=== PATIENT | female | born 1990 | race Caucasian/White ===

== ENCOUNTER 2017-01-15 05:14 | Emergency (ER) | payer OTHER ==
[~2017-01-15] VITALS: Ht 147.3 cm; Wt 52.2 kg
[~2017-01-15 05:14] MED LIST: CIPR500T94 PO
--- NOTE | 2017-01-15 05:57 | PHYS DOC ---
Past History Past Medical History: UTI Additional Past Medical Histor: Spinal bifida Past Surgical History: No Surgical History Additional Past Surgical Histo: PROPERTY CARETAKER shunt; spinal tethering; Spinal fusion Smoking: Non-smoker Alcohol Use: None Drug Use: None Adult General Chief Complaint Chief Complaint: Chest pain HPI HPI Patient is a 26 year old female who presents with signs of chest pain. She describes it as a dull ache. This started at 2100 p.m. hours. It is worse with laying down. The pain goes into her middle of her back. It is 4 on a pain scale presently. Initially started the epigastric area and has spread upwards into her chest. She states "recently which she felt was due to allergies and has been taking allergy medications. No recent travel. Denies any shortness of air with the pain. He is on control pills however does not smoke tobacco. Denies vomiting or diarrhea. No urinary complaints, she does self catheter. No fever or chills. Review of Systems Review of Systems Constitutional: Denies fever or chills Eyes: Denies change in visual acuity, redness, or eye pain HENT: Denies nasal congestion or sore throat Respiratory: Denies cough or shortness of breath Cardiovascular: Chest pain as noted, no syncope GI: epigastric abdominal pain, NO nausea, vomiting, bloody stools or diarrhea : Denies dysuria or hematuria -SELF CATHS Musculoskeletal:prior back surgery no joint pain or swelling Integument: Denies rash or skin lesions Neurologic: Denies headache, focal weakness or sensory changes Current Medications Current Medications Current Medications Medications (Trade) Dose Ordered Sig/Cande Start Time Stop Time Status Last Admin Dose Admin Sodium Chloride 1,000 ml @ 100 mls/hr Q10H 01/15/17 06:00 01/15/17 15:59 Allergies Allergies Allergies Coded Allergies Type Severity Reaction Last Updated Verified Sulfa (Sulfonamide Antibiotics) Allergy Severe Hives 08/21/15 Yes latex Allergy Severe Rash 08/21/15 Yes Physical Exam Physical Exam Constitutional: Well developed, well nourished, no acute distress, non-toxic appearance. HENT: Normocephalic, atraumatic, bilateral external ears normal, oropharynx moist, no oral exudates, nose normal. Eyes: PERRLA, EOMI, conjunctiva normal, no discharge. Neck: Normal range of motion, no tenderness, supple, no stridor. Cardiovascular:Heart rate regular rhythm, no murmur Lungs & Thorax: Bilateral breath sounds clear to auscultation. significant kyphosis noted Abdomen: Bowel sounds normal, soft, no tenderness to abdomen on palpation, no masses, no pulsatile masses. Skin: Warm, dry, no erythema, no rash. Back: No tenderness, no CVA tenderness. Extremities: No tenderness, no cyanosis, no clubbing, ROM intact, no edema. Neurologic: Alert and oriented X 3, normal motor function, normal sensory function, no focal deficits noted. Psychologic: Affect normal, judgement normal, mood normal. Current Patient Data Vital Signs BP 128/76, P 20, sat 99% RA, P 57 EKG EKG EKG interpreted by myself. Heart rate is 71 sinus rhythm. Normal axis. No acute ST elevation. No acute ST changes. Time at 0539 AM. Radiology/Procedures Radiology/Procedures CXR: Interpreted by myself. Scoliosis with rods in place; no acute infiltrate; no pleural effusion. PATIENT: JOSE L ANN ACCOUNT: [id number] : 1990 LOCATION: ER AGE: 26 SEX: F EXAM STATUS: REG ER ORD. PHYSICIAN: YOMI MI MD REASON: Chest pain PROCEDURE: PORTABLE CHEST 1V Portable chest, 01/15/2017: History: Chest pain Comparison is made to a study from 02/19/2013. A tubing overlying the left side of the chest presumably represents a PROPERTY CARETAKER shunt tube. There are Traore rods and surgical wires in the thoracolumbar spine traversing a moderate scoliosis. The heart size and pulmonary vascularity are normal. No pulmonary infiltrates are seen. There is no evidence of pleural fluid. IMPRESSION: No acute cardiopulmonary abnormality is detected. DICTATED AND SIGNED BY: NANDA CANAS MD DATE: 01/15/17702 CC: YOMI MI MD; MADHU VALDIVIA DO; INA HESS DO ~ PATIENT: JOSE L ANN ACCOUNT: [id number] : 1990 LOCATION: ER AGE: 26 SEX: F EXAM STATUS: REG ER ORD. PHYSICIAN: INA HESS DO REASON: cp, elev d-dimer PROCEDURE: CT ANGIOGRAPHY CHEST Examination: CT angiogram of the chest History: History of elevated d-dimer, chest pain Comparison: None available Technique: Axial CT and radiographic images were performed with IV contrast with coronal and sagittal 3-D MIP reformats are performed PQRS Compliance Statement: One or more of the following individualized dose reduction techniques were utilized for this examination: 1. Automated exposure control 2. Adjustment of the mA and/or kV according to patient size 3. Use of iterative reconstruction technique Findings: The caliber of the aorta grossly appears unremarkable. There is no evidence of filling defect identified in the main pulmonary arterial trunk and right and left main pulmonary arteries. There is no evidence of visualized filling defect identified in the lobar, proximal segmental branch of the pulmonary arteries. The evaluation of the distal segmental branches and subsegmental branches of the pulmonary arteries is limited. Examination is very limited due to significant streak artifact from thoracolumbar hardware. There is small focus of airspace opacity identified abutting the pleura in the right lung base measuring 1.3 cm. No evidence of pleural effusion or pneumothorax identified. The visualized liver grossly appears unremarkable. The gallbladder is moderately distended with multiple gallstones filling the gallbladder. The visualized spleen grossly appears unremarkable. There appears to be diffuse cystic changes identified in the region of the bilateral kidneys however evaluation of the kidneys is significantly limited due to diffuse streak artifact from the thoracolumbar hardware. These cystic structures in the bilateral kidneys may represent a cysts or partially visualized dilated bilateral renal pelvis. Diffuse bony fusion of mid thoracic vertebral bodies are identified with the Traore rods in the thoracic lumbar region. Thoracic scoliosis identified. Impression: 1. No evidence of filling defects identified in the visualized pulmonary arteries to suggest central pulmonary embolism. The evaluation of the distal segmental branches of the pulmonary arteries is limited. 2. 1.3 cm soft tissue density identified abutting the pleura in the right lung base laterally could be pleural thickening or scarring or infiltrate. Follow-up examination is recommended to document stability. 3.There appears to be diffuse cystic changes identified in the region of the bilateral kidneys however evaluation of the kidneys is significantly limited due to diffuse streak artifact from the thoracolumbar hardware. These cystic structures in the bilateral kidneys may represent a cysts or partially visualized dilated bilateral renal pelvis. Follow-up ultrasound can be considered. 4. Moderately distended gallbladder filled with gallstones. DICTATED AND SIGNED BY: DAVID GALLOWAY MD DATE: 01/15/17 0832 CC: MADHU VALDIVIA DO; INA HESS DO ~ PATIENT: JOSE L ANN ACCOUNT: [id number] : 1990 LOCATION: ER AGE: 26 SEX: F EXAM STATUS: REG ER ORD. PHYSICIAN: INA HESS DO REASON: GB and renal eval, see CT PROCEDURE: ABDOMEN COMPLETE Abdominal ultrasound, 01/15/2017: History: Abdominal pain The gallbladder contains multiple gallstones. Its warren are mildly thickened measuring approximately 6 mm. The common hepatic duct is of normal caliber. No intrahepatic biliary ductal dilatation is seen. There is no evidence of a hepatic mass. The visualized portions of the pancreatic body are unremarkable. The spleen is of normal size. The visualized portions of the abdominal aorta and inferior vena cava show no abnormality. There is mild to moderate bilateral hydronephrosis. This improved slightly following bladder emptying. There was 110 cc of post voiding residual urine in the bladder. IMPRESSION: 1. Cholelithiasis with mild associated gallbladder wall thickening. 2. Mild to moderate bilateral hydronephrosis. 3. Moderate volume of post voiding residual urine in the bladder. DICTATED AND SIGNED BY: NANDA CANAS MD DATE: 01/15/17 1148 CC: MADHU VALDIVIA DO; INA HESS DO ~ Course & Med Decision Making Course & Med Decision Making Pertinent Labs and Imaging studies reviewed. (See chart for details) Differential diagnosis: pulmonary emboli; gastritis; GERD; chest pain of unclear etiology. 0600 am: Care of patient turned over at shift change to Dr Hess. Lab pending and see his note for remainder of evaluation and disposition 0717: Time in department just over two hours. Staff reports numerous failed attempts at collecting labs, some reported hemolyzed and had to be redrawn. Lab has come to draw pt, will have prolonged ED course due to lab delay. 0726: d-dimer 0.77, will check CTA. WBC 15, b5, Cr 1.2, AST 38, UA +SE contamination. Pt will have prolonged course in ED due to Rad. I discussed findings, pt feeling much better. Discussed potential hospital admission, pt requests d/c home to f/u as outpt. See departure. Ke Disclaimer Ke Disclaimer This chart was dictated in whole or in part using Voice Recognition software in a busy, high-work load, and often noisy Emergency Department environment. It may contain unintended and wholly unrecognized errors or omissions. Departure Time of Disposition: 12:14 Disposition: 01 HOME, SELF-CARE Diagnosis: UTI, cholelithiasis, Condition: GOOD Patient Instructions: Cholelithiasis, [id number], Urinary Tract Infection, [id number] Referrals: MADHU VALDIVIA DO (PCP) Additional Instructions: [place] diet, avoid fried/fatty foods. Aggressive hydration with gatorade, water. Rx: norco 5mg #20, zofran odt, cipro You will need to follow up with a general surgeon. You may wish to see: [facility] General Surgery [address] [facility] [address] , [place] [address] call to schedule appointment. Return to ED with new or changing symptoms. Departure Departure: Disposition: HOME, SELF-CARE Condition: GOOD Referrals: AMDHU VALDIVIA DO (PCP) Patient Instructions: Cholelithiasis, [id number], Urinary Tract Infection, [id number] Additional Instructions: [place] diet, avoid fried/fatty foods. Aggressive hydration with gatorade, water. Rx: norco 5mg #20, zofran odt, cipro You will need to follow up with a general surgeon. You may wish to see: [facility] General Surgery [address] [facility] [address] , [place] [address] call to schedule appointment. Return to ED with new or changing symptoms. Scripts Ciprofloxacin Hcl (CIPRO) 500 Mg Tablet 1 TAB PO BID, #20 TAB Prov: INA HESS DO 01/15/17 Ondansetron (ZOFRAN ODT) 4 Mg Tab.rapdis 4 MG PO Q6HRS for NAUSEA/VOMITING, #20 TAB Prov: INA HESS DO 16/17 Hydrocodone Bit/Acetaminophen (NORCO 5-325 TABLET) 1 Each Tablet 1 TAB PO PRN Q6HRS Y for PAIN, #14 TAB 0 Refills Prov: INA HESS DO 01/15/17 YOMI MI MD January 15, 2017 05:57 INA HESS DO January 15, 2017 07:18
[2017-01-15] MEDS: IV NORMAL SALINE 1,000ML 1,000 ML IV SCH ×2 (06:00→07:45)
[2017-01-15 06:18] LABS: BILIRUBIN,URINE NEG (NEG); CLARITY,URINE CLOUDY; COLOR,URINE STRAW; GLUCOSE,URINE NEG (NEG); NITRITE,URINE NEG (NEG); UROBILINOGEN,URINE 0.2 mg/dL (0.2 mg/dL)
[2017-01-15 06:19] LABS: BACTERIA,URINE MANY /HPF (0-FEW); SQUAMOUS EPITHELIAL CELL,UR OCC /LPF; WBC,URINE >40 /HPF (0-4)
[2017-01-15 06:20] LABS: BASO # 0.1 x10^3/uL (0.0-0.2); BASO % 1 % (0-3); EOS # 0.2 x10^3/uL (0.0-0.7); EOS % 1 % (0-3); HEMATOCRIT 38.7 % (36.0-47.0); HEMOGLOBIN 12.9 g/dL (12.0-15.5); LYMPH # 1.7 x10^3/uL (1.0-4.8); LYMPH % 12 % (24-48); MEAN CORPUSCULAR HEMOGLOBIN 29 pg (25-35); MEAN CORPUSCULAR HGB CONC 33 g/dL (31-37); MEAN CORPUSCULAR VOLUME 86 fL (79-100); MONO # 0.9 x10^3/uL (0.0-1.1); MONO % 6 % (0-9); NEUT % 80 % (31-73); PLATELET COUNT 346 x10^3/uL (140-400); RED CELL DISTRIBUTION WIDTH 13.6 % (11.5-14.5)
--- NOTE | 2017-01-15 06:31 | EKG ---
[address] [address] Test Date: 2017-01-15 Test Time: 05:39:16 Pat Name: JOSE L ANN Department: Room: Gender: F [employer]cavating [employer]or: : 1990 Requested By: YOMI MI Order Number: [id number] Reading MD: Genaro Howell Measurements Intervals [place] Rate: 71 P: 42 KS: 148 QRS: 10 QRSD: 80 T: 41 QT: 376 QTc: 409 Interpretive Statements SINUS RHYTHM Electronically Signed On 01-15-2017 10:55:27 CDT by Genaro Howell
--- NOTE | 2017-01-15 07:07 | RAD ---
Portable chest, 01/15/2017: History: Chest pain Comparison is made to a study from 02/19/2013. 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 There are Traore rods and surgical wires in the thoracolumbar spine traversing a moderate scoliosis. The heart size and pulmonary vascularity are normal. No pulmonary infiltrates are seen. There is no evidence of pleural fluid. IMPRESSION: No acute cardiopulmonary abnormality is detected.
[2017-01-15 07:19] LABS: PREG TEST PT QUAL NEGATIVE (NEG)
[2017-01-15 07:31] LABS: ALBUMIN 3.4 g/dL (3.4-5.0); ALBUMIN/GLOBULIN RATIO 0.8 (1.0-1.7); CALCIUM 8.9 mg/dL (8.5-10.1); CREATININE 1.2 mg/dL (0.6-1.0); DIRECT BILIRUBIN 0.2 mg/dL (0.0-0.2); GFR 53.5; POTASSIUM 3.9 mmol/L (3.5-5.1); TOTAL BILIRUBIN 0.4 mg/dL (0.2-1.0); TOTAL PROTEIN 7.5 g/dL (6.4-8.2)
[2017-01-15] MEDS ORDERED: IOHEXOL 300 MG/ML 75 ML VIAL. ONE (08:03)
[2017-01-15] MEDS ORDERED: IOHEXOL 300 MG/ML 75 ML VIAL. IV ONE (08:15)
[2017-01-15 08:40] LABS: % BANDS 5 % (0-9); % BASOS 2 % (0-3); % EOS 0 % (0-5); % LYMPHS 16 % (24-48); % MONOS 5 % (0-10); % SEGS 72 % (35-66); PLATELET CLUMP PRESENT; PLT ESTIMATE ADEQUATE (ADEQUATE)
--- NOTE | 2017-01-15 08:47 | RAD ---
Examination: CT angiogram of the chest History: History of elevated d-dimer, chest pain Comparison: None available Technique: Axial CT and radiographic images were performed with IV contrast with coronal and sagittal 3-D MIP reformats are performed PQRS Compliance Statement: One or more of the following individualized dose reduction techniques were utilized for this examination: 1. Automated exposure control 2. Adjustment of the mA and/or kV according to patient size 3. Use of iterative reconstruction technique Findings: The caliber of the aorta grossly appears unremarkable. There is no evidence of filling defect identified in the main pulmonary arterial trunk and right and left main pulmonary arteries. There is no evidence of visualized filling defect identified in the lobar, proximal segmental branch of the pulmonary arteries. The evaluation of the distal segmental branches and subsegmental branches of the pulmonary arteries is limited. Examination is very limited due to significant streak artifact from thoracolumbar hardware. There is small focus of airspace opacity identified abutting the pleura in the right lung base measuring 1.3 cm. No evidence of pleural effusion or pneumothorax identified. The visualized liver grossly appears unremarkable. The gallbladder is moderately distended with multiple gallstones filling the gallbladder. The visualized spleen grossly appears unremarkable. There appears to be diffuse cystic changes identified in the region of the bilateral kidneys however evaluation of the kidneys is significantly limited due to diffuse streak artifact from the thoracolumbar hardware. These cystic structures in the bilateral kidneys may represent a cysts or partially visualized dilated bilateral renal pelvis. Diffuse bony fusion of mid thoracic vertebral bodies are identified with the Traore rods in the thoracic lumbar region. Thoracic scoliosis identified. Impression: 1. No evidence of filling defects identified in the visualized pulmonary arteries to suggest central pulmonary embolism. The evaluation of the distal segmental branches of the pulmonary arteries is limited. 2. 1.3 cm soft tissue density identified abutting the pleura in the right lung base laterally could be pleural thickening or scarring or infiltrate. Follow-up examination is recommended to document stability. 3.There appears to be diffuse cystic changes identified in the region of the bilateral kidneys however evaluation of the kidneys is significantly limited due to diffuse streak artifact from the thoracolumbar hardware. These cystic structures in the bilateral kidneys may represent a cysts or partially visualized dilated bilateral renal pelvis. Follow-up ultrasound can be considered. 4. Moderately distended gallbladder filled with gallstones.
--- NOTE | 2017-01-15 10:25 | ACF ---
Admission Criteria Forms URINARY COMPLICATIONS Clinical Indications for Inpatient Care (Place 'X' for any and all applicable criteria): Ongoing inpatient care may be indicated for urinary complications with ANY ONE of the following: [ ]I. Urinary tract infection requiring inpatient care as indicated by ANY ONE of the following(8)(19)(20): [ ]a) Severe symptoms (eg, high fever, severe pain) [ ]b) Vomiting or dehydration requiring ongoing inpatient care [ ]c) IV antibiotic needs that cannot be managed at lower level of care [ ]d) Hemodynamic instability [ ]e) Obstruction of collecting system by stone or tumor [ ]II. Urinary retention requiring drainage or surgery (3)(4)(5)(17)(18) [ ]III. Renal failure (Use Renal Failure Criteria for further information.) [ ]IV. Oliguria(30) [ ]V. Post obstructive diuresis requiring close monitoring of urine output and intravenous compensation for excessive fluid losses(33) Extended stay beyond goal length of stay for primary condition may be needed until ALL of the following are present(3)(4)(5)(8): [ ]a) Renal function (creatinine) at baseline, or daily decreases in creatinine consistent with renal function return [ ]b) Voiding adequately or with urinary catheter or percutaneous suprapubic tube and management regimen in place that is performable at lower level of care. [ ]c) Urine output adequate [ ]d) Fever absent or resolving [ ]e) Infection absent or treatable at next level of care The original [employer] content created by [employer] has been revised. The portions of the content which have been revised are identified through the use of italic text or in bold, and [facility] has neither reviewed nor approved the modified material. All other unmodified content is copyright [employer] Please see references footnoted in the original [employer] edition 2016 CAYETANO HERMOSILLO January 15, 2017 10:25
--- NOTE | 2017-01-15 11:57 | RAD ---
Abdominal ultrasound, 01/15/2017: History: Abdominal pain The gallbladder contains multiple gallstones. Its warren are mildly thickened measuring approximately 6 mm. The common hepatic duct is of normal caliber. No intrahepatic biliary ductal dilatation is seen. There is no evidence of a hepatic mass. The visualized portions of the pancreatic body are unremarkable. The spleen is of normal size. The visualized portions of the abdominal aorta and inferior vena cava show no abnormality. There is mild to moderate bilateral hydronephrosis. This improved slightly following bladder emptying. There was 110 cc of post voiding residual urine in the bladder. IMPRESSION: 1. Cholelithiasis with mild associated gallbladder wall thickening. 2. Mild to moderate bilateral hydronephrosis. 3. Moderate volume of post voiding residual urine in the bladder.
[2017-01-15] MEDS ORDERED: HYDR-971 PO (12:21)
[2017-01-15] MEDS ORDERED: ONDA4TAB10 PO (12:21)
[2017-01-15] MEDS ORDERED: CIPR500T94 PO (12:21)
[2017-01-15 12:30] VITALS: BP 117/45
== END 2017-01-15 12:30 | disposition home or self-care (01) ==
LOC: ER 05:14
DX: N39.0 Urinary tract infection, site not specified (principal); K80.20 Calculus of gallbladder without cholecystitis without obstruction; Z88.0 Allergy status to penicillin; Z91.040 Latex allergy status
CPT/HCPCS: 36415; 71010; 71275; 76700; 80053; 80076; 81001; 82553; 83690; 84484; 84703; 85007; 85027; 85379; 85610; 87086; 93005; 96360; 96361; 99285; Q9967; J7030

== ENCOUNTER 2020-02-08 23:38 | Emergency (ER) | payer MEDICARE ==
[~2020-02-08] VITALS: Ht 147.3 cm; Wt 54.7 kg
[~2020-02-08 23:38] MED LIST changes: +HYDR-3165 PO; +ONDA4TAB10 PO
--- NOTE | 2020-02-09 00:06 | PHYS DOC ---
Past History Past Medical History: Depression, Other Additional Past Medical Histor: Spina bifida, hydrocephalus (LUCERO VELAZQUEZ DO) Past Surgical History: Other Additional Past Surgical Histo: [employer] shunt, spinal detanglement, spinal fusion (LUCERO VELAZQUEZ DO) Smoking: Non-smoker Alcohol Use: None Drug Use: None (LUCERO VELAZQUEZ DO) General Adult EDM: Chief Complaint: OVERDOSE HPI: HPI: Patient is a 29 year old female who presents for evaluation of intentional overdose of approximately 90 Zoloft tablets at 10:30 PM tonight. Patient states she took them with the intention to kill herself. Patient states "I want it all to be over". Patient has a substantial past medical history including spina bifida, hydrocephalus and [employer] shunt. Patient states she lives with her . Patient has a longstanding history of depression. She states she is never tried to commit suicide in the past and has never had a psychiatric admission. Patient was evasive about what made her take these pills this evening. Patient states she is tired of being "handicapped". EMS brought patient in for evaluation. The zoloft tablets were in 2019 and were 100 mg strength (LUCERO VELAZQUEZ DO) Review of Systems: Review of Systems: Constitutional: Denies fever or chills Eyes: Denies change in visual acuity HENT: Denies nasal congestion or sore throat Respiratory: Denies cough or shortness of breath Cardiovascular: Denies chest pain or edema GI: Denies abdominal pain, nausea, vomiting, bloody stools or diarrhea : Denies dysuria Musculoskeletal: Denies back pain or joint pain Integument: Denies rash Neurologic: Denies headache, focal weakness or sensory changes Endocrine: Denies polyuria or polydipsia Lymphatic: Denies swollen glands Psychiatric: Has depression and anxiety (LUCERO VELAZQUEZ DO) Heart Score: Risk Factors: Risk Factors: DM, Current or recent (<one month) smoker, HTN, HLP, family history of CAD, obesity. Risk Scores: Score 0 - 3: 2.5% MACE over next 6 weeks - Discharge Home Score 4 - 6: 20.3% MACE over next 6 weeks - Admit for Clinical Observation Score 7 - 10: 72.7% MACE over next 6 weeks - Early Invasive Strategies (LUCERO VELAZQUEZ DO) Physical Exam: PE: Constitutional: Well developed, well nourished, moderate distress, somewhat sleepy. [] HENT: Normocephalic, atraumatic, bilateral external ears normal, oropharynx moist, no oral exudates, nose normal. [] Eyes: PERRL, EOMI, conjunctiva normal, no discharge. [] Neck: Normal range of motion, no tenderness, supple, no stridor. [] Cardiovascular:Heart rate regular rhythm, no murmur [] Lungs & Thorax: Bilateral breath sounds clear to auscultation [] Abdomen: Bowel sounds normal, soft, no tenderness, no masses, no pulsatile masses. [] Skin: Warm, dry, no erythema, no rash. [] Back: No tenderness, no CVA tenderness. [] Extremities: No tenderness, no cyanosis, no clubbing, ROM intact, no edema. [] Neurologic: Alert and oriented, normal motor function, normal sensory function, no focal deficits noted. [] Psychologic: Depressed affect, abnormal mood, clearly states suicidal thoughts [] (LUCERO VELAZQUEZ DO) Current Patient Data: Labs: Laboratory Tests Test 02/08/20 23:52 02/09/20 00:01 Urine Collection Type U cath Urine Color Yellow Urine Clarity Hazy Urine pH 6.0 Urine Specific [place] 1.015 Urine Protein Neg Urine Glucose (UA) Neg mg/dL Urine Ketones (Stick) Neg mg/dL Urine Blood Small Urine Nitrite Pos Urine Bilirubin Neg Urine Urobilinogen Dipstick 0.2 mg/dL Urine Leukocyte Esterase Mod Urine RBC Occ /HPF Urine WBC 5-10 /HPF Urine Squamous Epithelial Cells Occ /LPF Urine Bacteria Few /HPF Urine Opiates Screen Neg Urine Methadone Screen Neg Urine Barbiturates Neg Urine Phencyclidine Screen Neg Urine Amphetamine/Methamphetamine Neg Urine Benzodiazepines Screen Neg Urine Cocaine Screen Neg Urine Cannabinoids Screen Neg Urine Ethyl Alcohol Neg White Blood Count 9.2 x10^3/uL Red Blood Count 4.70 x10^6/uL Hemoglobin 12.8 g/dL Hematocrit 39.8 % Mean Corpuscular Volume 85 fL Mean Corpuscular Hemoglobin 27 pg Mean Corpuscular Hemoglobin Concent 32 g/dL Red Cell Distribution Width 14.0 % Platelet Count 305 x10^3/uL Neutrophils (%) (Auto) 75 % Lymphocytes (%) (Auto) 15 % Monocytes (%) (Auto) 7 % Eosinophils (%) (Auto) 1 % Basophils (%) (Auto) 3 % Neutrophils # (Auto) 6.9 x10^3uL Lymphocytes # (Auto) 1.3 x10^3/uL Monocytes # (Auto) 0.6 x10^3/uL Eosinophils # (Auto) 0.1 x10^3/uL Basophils # (Auto) 0.3 x10^3/uL Sodium Level 139 mmol/L Potassium Level 3.5 mmol/L Chloride Level 101 mmol/L Carbon Dioxide Level 24 mmol/L Anion Gap 14 Blood Urea Nitrogen 21 mg/dL Creatinine 1.5 mg/dL Estimated GFR (Cockcroft-Gault) 40.5 BUN/Creatinine Ratio 14 Glucose Level 112 mg/dL Calcium Level 9.1 mg/dL Total Bilirubin 0.5 mg/dL Aspartate Amino Transf (AST/SGOT) 15 U/L Alanine Aminotransferase (ALT/SGPT) 21 U/L Alkaline Phosphatase 77 U/L Total Protein 8.0 g/dL Albumin 4.1 g/dL Albumin/Globulin Ratio 1.1 Serum Test, Qualitative Negative Salicylates Level < 2.8 mg/dL Salicylate Last Dose Date Unknown Salicylate Last Dose Time Unknown Acetaminophen Level < 2.0 mcg/mL Acetaminophen Last Dose Date Unknown Acetaminophen Last Dose Time Unknown Ethyl Alcohol Level < 10 mg/dL Current Medications Medications (Trade) Dose Ordered Sig/Cande Route PRN Reason Start Time Stop Time Status Last Admin Dose Admin Sodium Chloride 1,000 ml @ 1,000 mls/hr 1X ONCE IV 02/09/20 00:15 02/09/20 01:14 02/09/20 00:15 (LUCERO VELAZQUEZ DO) EKG: EKG: Normal sinus rhythm, rate 82, ST segment depression in lead V3, no prolonged QT or widened QRS #2 EKG done 3 hours after arrival. Normal sinus rhythm, no prolonged QT, no wide QRS, rate mid 90s, not STEMI, no interval changes (LUCERO VELAZQUEZ DO) Radiology/Procedures: Radiology/Procedures: [] (LUCERO VELAZQUEZ DO) Course & Med Decision Making: Course & Med Decision Making Pertinent Labs and Imaging studies reviewed. (See chart for details) 0019 Case was discussed with poison control shortly after arrival. They recommended getting an EKG now and in 3 hours. She will require monitoring in the ER for about 6 hours before she can be medically cleared. Full screening lab work regarding overdose ordered. Aspirin and Tylenol levels added as well. Patient is cooperative but somewhat evasive with her answers at this time 0600 Care of patient turned over to Dr. Arguello at shift change. Pt medically cleared and ready for psychiatric evaluation. (LUCERO VELAZQUEZ DO) Course & Med Decision Making 02/09/2020 at 12:00 PM: Patient's condition remains stable, she has remained stable throughout her stay in the emergency department. She has been accepted to [facility] by Dr. De La Cruz, she is agreeable to transfer. (BRANDON ARGUELLO MD) Dragon Disclaimer: Dragon Disclaimer: This electronic medical record was generated, in whole or in part, using a voice recognition dictation system. (LUCERO VELAZQUEZ DO) Departure Departure: Impression: Primary Impression: Selective serotonin re-uptake inhibitor overdose Qualified Codes: T43.222A - Poisoning by selective serotonin reuptake inhibitors, intentional self-harm, initial encounter Additional Impressions: Suicidal ideation Acute depression History of spina bifida Acute UTI (urinary tract infection) Disposition: 65 XFER TO PSYCH HOSP/UNIT Condition: STABLE Referrals: PCP,NO (PCP) Justification of Admission: Justification of Admission: Justification of Admission Dx: N/A (LUCERO VELAZQUEZ DO) LUCERO VELAZQUEZ DO Feb 09, 2020 00:06 BARNDON ARGUELLO MD Feb 09, 2020 12:02
[2020-02-09] MEDS ORDERED: IV NORMAL SALINE 1,000ML 1,000 ML IV ONE (00:15)
[2020-02-09 00:36] LABS: BASO # 0.3 x10^3/uL (0.0-0.2); BASO % 3 % (0-3); EOS # 0.1 x10^3/uL (0.0-0.7); EOS % 1 % (0-3); HEMATOCRIT 39.8 % (36.0-47.0); HEMOGLOBIN 12.8 g/dL (12.0-15.5); LYMPH # 1.3 x10^3/uL (1.0-4.8); LYMPH % 15 % (24-48); MEAN CORPUSCULAR HEMOGLOBIN 27 pg (25-35); MEAN CORPUSCULAR HGB CONC 32 g/dL (31-37); MEAN CORPUSCULAR VOLUME 85 fL (79-100); MONO # 0.6 x10^3/uL (0.0-1.1); MONO % 7 % (0-9); NEUT # 6.9 x10^3uL (1.8-7.7); NEUT % 75 % (31-73); PLATELET COUNT 305 x10^3/uL (140-400); WHITE BLOOD COUNT 9.2 x10^3/uL (4.0-11.0)
[2020-02-09 00:39] LABS: CALCIUM 9.1 mg/dL (8.5-10.1); CREATININE 1.5 mg/dL (0.6-1.0); GFR 40.5; POTASSIUM 3.5 mmol/L (3.5-5.1)
[2020-02-09 00:40] LABS: BARBITURATES NEG (NEG); BENZODIAZEPINES NEG (NEG); CANNABINOIDS NEG (NEG); COCAINE NEG (NEG); METHADONE NEG (NEG); OPIATES NEG (NEG); PHENCYCLIDINE NEG (NEG)
[2020-02-09 00:41] LABS: AMPHETAMINE/METHAMPHETAMINE NEG (NEG)
[2020-02-09 00:45] LABS: ALBUMIN 4.1 g/dL (3.4-5.0); ALBUMIN/GLOBULIN RATIO 1.1 (1.0-1.7); TOTAL BILIRUBIN 0.5 mg/dL (0.2-1.0)
[2020-02-09 00:47] LABS: CLARITY,URINE HAZY; COLOR,URINE YELLOW
[2020-02-09 00:48] LABS: BACTERIA,URINE FEW /HPF (0-FEW); BILIRUBIN,URINE NEG (NEG); GLUCOSE,URINE NEG (NEG); NITRITE,URINE POS (NEG); RBC,URINE OCC /HPF (0-2); SQUAMOUS EPITHELIAL CELL,UR OCC /LPF; UROBILINOGEN,URINE 0.2 mg/dL (0.2 mg/dL)
[2020-02-09 00:49] LABS: PREG TEST PT QUAL NEGATIVE (NEG)
[2020-02-09 00:51] LABS: ACETAMIN < 2.0 mcg/mL (10-30); SALIC < 2.8 mg/dL (2.8-20.0)
[2020-02-09] MEDS ORDERED: CEPHALEXIN 250 MG CAPSULE PO ONE (05:15)
[2020-02-09 12:54] VITALS: BP 147/82
--- NOTE | 2020-02-11 08:16 | EKG ---
[address] [address] Test Date: 2020-02-09 Test Time: 02:31:36 Pat Name: JOSE L SALGADO Department: Room: Gender: Customer Support Assistant: : 1990 Requested By: LUCERO VELAZQUEZ Order Number: [id number] Reading MD: Genaro Howell MD Measurements Intervals [place] Rate: P: DC: QRS: QRSD: T: QT: QTc: Interpretive Statements SR Electronically Signed On 02-15-2020 13:27:22 CDT by Genaro Howell MD
--- NOTE | 2020-02-11 08:17 | EKG ---
[address] [address] Test Date: 2020-02-08 Test Time: 23:42:41 Pat Name: JOSE L SALGADO Department: Room: Gender: Auditor Tax: : 1990 Requested By: LUCERO VELAZQUEZ Order Number: [id number] Reading MD: Genaro Howell MD Measurements Intervals [place] Rate: P: [place]: QRS: QRSD: T: QT: QTc: Interpretive Statements SR NON-SPECIFIC ST/T CHANGES Electronically Signed On 02-15-2020 12:34:05 CDT by Genaro Howell MD
== END 2020-02-09 13:35 ==
LOC: MERGE 23:38 → ER 23:38
DX: T43.222A Poisoning by selective serotonin reuptake inhibitors, intentional self-harm, initial encounter (principal); R45.851 Suicidal ideations; F32.9 Major depressive disorder, single episode, unspecified; Q05.9 Spina bifida, unspecified; N39.0 Urinary tract infection, site not specified; Y92.89 Other specified places as the place of occurrence of the external cause
CPT/HCPCS: 36415; 80053; 80307; 80329; 81001; 84703; 85025; 87086; 93005; 99285; G0480; P9612; J7030